=== PATIENT | female | born 1960 | race Caucasian/White ===

== ENCOUNTER 2019-05-18 08:52 | Observation (INO) | payer OTHER ==
[2019-05-18] MEDS ORDERED: ASPIRIN 81 MG PO STA (09:18)
--- NOTE | 2019-05-18 09:20 | ED ---
General Adult HPI - General Chief complaint: Chest Pain Stated complaint: Chest pain, High BP, headache Time Seen by Provider: 05/18/19 09:04 Source: patient Mode of arrival: wheelchair - History of Present Illness Initial comments: Dictation was produced using PROFIC[employer] dictation software. please excuse any grammatical, word or spelling errors. Chief Complaint: 59-year-old female with past medical history of dyslipidemia and hypertension presents with chest pain. History of Present Illness: 59-year-old female she presents today chief complaint of chest pain. Patient is not sure when exactly she had the chest pain. States that spent have been intermittently for the last several days. She states that she had pain that woke her up this morning. Patient states that the pain is sharp and located to her anterior chest. She states that there is associated diaphoresis and nausea. States that the pain does radiate to her extremity however she is not sure which arm. She has a chronic tobacco user. She denies any chest pain currently. The ROS documented in this emergency department record has been reviewed and confirmed by me. Those systems with pertinent positive or negative responses have been documented in the HPI. All other systems are other negative and/or noncontributory. PHYSICAL EXAM: General Impression: Alert and oriented x3, not in acute distress HEENT: Normocephalic atraumatic, extra-ocular movements intact, pupils equal and reactive to light bilaterally, mucous membranes moist. Cardiovascular: Heart regular rate and rhythm, S1&S2 audible, no murmurs, rubs or gallops Chest: Lungs clear to auscultation bilaterally, no rhonchi, no wheeze, no rales Abdomen: Bowel sounds present, abdomen soft, non-tender, non-distended, no o rganomegaly Musculoskeletal: Pulses present and equal in all extremities, no peripheral edema Motor: no focal deficits noted Neurological: CN II-XII grossly intact, no focal motor or sensory deficits noted Skin: Intact with no visualized rashes Psych: Normal affect and mood ED course: 59-year-old female presents with atypical chest pain with typical features. She has multiple risk factors. Signs upon arrival are within acceptable limits. EKG is benign. Laboratory evaluation obtained. CBC, coag panel, metabolic panel is unremarkable. Cardiac enzyme is negative. Chest x-ray is nonacute. Patient was reevaluated at bedside with improvement of chest pain after administration of aspirin. Given patient's clinical presentation and risk factors which should benefit from observation admission with serial troponins and cardiology consultation. Discussed patient case with Dr. Farmer who is willing to accept patients care. EKG interpretation: Ventricular rate 78, normal sinus rhythm, MI interval 132, QRS 92, QTc 433. No MI prolongation, no QTC prolongation, no ST or T-wave changes noted. Overall, this EKG is unremarkable - Related Data Home Medications Medication Instructions Recorded Confirmed Aspirin EC [Ecotrin Low Dose] 81 mg PO DAILY 05/18/19 05/18/19 Butalb/Acetaminophen/Caffeine 1 - 2 tab PO Q4H PRN 05/18/19 05/18/19 [Fioricet 50-325-40] Cyanocobalamin (Vitamin B-12) 1,000 mcg PO DAILY 05/18/19 05/18/19 [Vitamin B-12] Fluticasone Propionate [Flonase 1 spray EA NOSTRIL DAILY 05/18/19 05/18/19 Allergy Relief] Hydrocodone/Acetaminophen [[place] 1 tab PO QID PRN 05/18/19 05/18/19 10-325] Ibuprofen [Motrin] 400 - 800 mg PO Q8H PRN 05/18/19 05/18/19 Metoprolol Succinate (ER) [Toprol 25 mg PO DAILY 05/18/19 05/18/19 Xl] Vitamin B Complex 1 cap PO DAILY 05/18/19 05/18/19 Allergies Allergy/AdvReac Type Severity Reaction Status Date / Time Sulfa (Sulfonamide Allergy Rash/Hives Verified 05/18/19 10:15 Antibiotics) Review of Systems ROS Statement: Those systems with pertinent positive or pertinent negative responses have been documented in the HPI. ROS Other: All systems not noted in ROS Statement are negative. Past Medical History Past Medical History: Hyperlipidemia, Hypertension History of Any Multi-Drug Resistant Organisms: None Reported Past Surgical History: Hysterectomy, Orthopedic Surgery, Tonsillectomy Past Psychological History: No Psychological Hx Reported Smoking Status: Current some day smoker Past Alcohol Use History: None Reported Past Drug Use History: None Reported Course Vital Signs 05/18/19 05/18/19 08:52 09:29 Temperature 98.0 F 98.2 F Pulse Rate 89 77 Respiratory 18 20 Rate Blood Pressure 186/107 167/96 O2 Sat by Pulse 98 98 Oximetry Medical Decision Making - Lab Data Result diagrams: 05/18/19 09:19 05/18/19 09:19 Lab Results 05/18/19 05/18/19 05/18/19 Range/Units 09:19 09:19 09:19 WBC 5.5 (3.8-10.6) k/uL RBC 4.62 (3.80-5.40) m/uL Hgb 14.8 (11.4-16.0) gm/dL Hct 44.1 (34.0-46.0) % MCV 95.5 (80.0-100.0) fL MCH 32.0 (25.0-35.0) pg MCHC 33.5 (31.0-37.0) g/dL RDW 12.9 (11.5-15.5) % Plt Count 176 (150-450) k/uL Neutrophils % 50 % Lymphocytes % 38 % Monocytes % 4 % Eosinophils % 4 % Basophils % 1 % Neutrophils # 2.8 (1.3-7.7) k/uL Lymphocytes # 2.1 (1.0-4.8) k/uL Monocytes # 0.2 (0-1.0) k/uL Eosinophils # 0.2 (0-0.7) k/uL Basophils # 0.1 (0-0.2) k/uL PT 11.5 (9.0-12.0) sec INR 1.1 (<1.2) APTT 24.5 (22.0-30.0) sec Sodium 139 (137-145) mmol/L Potassium 4.0 (3.5-5.1) mmol/L Chloride 105 (98-107) mmol/L Carbon Dioxide 24 (22-30) mmol/L Anion Gap 10 mmol/L BUN 13 (7-17) mg/dL Creatinine 0.69 (0.52-1.04) mg/dL Est GFR (CKD-EPI)AfAm >90 (>60 ml/min/1.73 sqM) Est GFR (CKD-EPI)NonAf >90 (>60 ml/min/1.73 sqM) Glucose 158 H (74-99) mg/dL Calcium 9.9 (8.4-10.2) mg/dL Magnesium 1.6 (1.6-2.3) mg/dL Total Bilirubin 0.3 (0.2-1.3) mg/dL AST 86 H (14-36) U/L ALT 115 H (4-34) U/L Alkaline Phosphatase 114 (38-126) U/L Troponin I (0.000-0.034) ng/mL Total Protein 8.5 H (6.3-8.2) g/dL Albumin 4.6 (3.5-5.0) g/dL 05/18/19 Range/Units 09:19 WBC (3.8-10.6) k/uL RBC (3.80-5.40) m/uL Hgb (11.4-16.0) gm/dL Hct (34.0-46.0) % MCV (80.0-100.0) fL MCH (25.0-35.0) pg MCHC (31.0-37.0) g/dL RDW (11.5-15.5) % Plt Count (150-450) k/uL Neutrophils % % Lymphocytes % % Monocytes % % Eosinophils % % Basophils % % Neutrophils # (1.3-7.7) k/uL Lymphocytes # (1.0-4.8) k/uL Monocytes # (0-1.0) k/uL Eosinophils # (0-0.7) k/uL Basophils # (0-0.2) k/uL PT (9.0-12.0) sec INR (<1.2) APTT (22.0-30.0) sec Sodium (137-145) mmol/L Potassium (3.5-5.1) mmol/L Chloride (98-107) mmol/L Carbon Dioxide (22-30) mmol/L Anion Gap mmol/L BUN (7-17) mg/dL Creatinine (0.52-1.04) mg/dL Est GFR (CKD-EPI)AfAm (>60 ml/min/1.73 sqM) Est GFR (CKD-EPI)NonAf (>60 ml/min/1.73 sqM) Glucose (74-99) mg/dL Calcium (8.4-10.2) mg/dL Magnesium (1.6-2.3) mg/dL Total Bilirubin (0.2-1.3) mg/dL AST (14-36) U/L ALT (4-34) U/L Alkaline Phosphatase (38-126) U/L Troponin I <0.012 (0.000-0.034) ng/mL Total Protein (6.3-8.2) g/dL Albumin (3.5-5.0) g/dL Disposition Clinical Impression: Chest pain Disposition: ADMITTED IP TO THIS HOSP Condition: Fair Referrals: Anatoliy Avilez MD [Primary Care Provider] - 1-2 days Decision Time: 10:29
[2019-05-18 09:39] LABS: Basophils # (A) 0.1 k/uL (0-0.2); Basophils % (A) 1 %; Eosinophils # (A) 0.2 k/uL (0-0.7); Eosinophils % (A) 4 %; HCT 44.1 % (34.0-46.0); HGB 14.8 gm/dL (11.4-16.0); Lymphocytes # (A) 2.1 k/uL (1.0-4.8); Lymphocytes % (A) 38 %; MCHC 33.5 g/dL (31.0-37.0); MCV 95.5 fL (80.0-100.0); Monocytes # (A) 0.2 k/uL (0-1.0); Monocytes % (A) 4 %; Neutrophils # (A) 2.8 k/uL (1.3-7.7); Neutrophils % (A) 50 %; Platelet Count 176 k/uL (150-450); RBC 4.62 m/uL (3.80-5.40); RDW 12.9 % (11.5-15.5); WBC 5.5 k/uL (3.8-10.6)
--- NOTE | 2019-05-18 09:44 | XR ---
EXAMINATION TYPE: XR chest 2V DATE OF EXAM: 05/18/2019 COMPARISON: NONE HISTORY: Shortness of breath TECHNIQUE: Frontal and lateral views of the chest are obtained. FINDINGS: Scattered senescent parenchymal changes noted. Hyperinflation compatible with COPD. No evidence for infiltrate. No evidence for atelectasis. Heart size is stable. Mediastinal structures are stable and grossly unremarkable. No evidence for hilar prominence. Degenerative changes dorsal spine. IMPRESSION: 1. No evidence for acute pulmonary disease.
[2019-05-18 09:47] LABS: INR 1.1 (<1.2); Partial Thromboplastin Time 24.5 sec (22.0-30.0); Prothrombin Time 11.5 sec (9.0-12.0)
[2019-05-18 09:51] LABS: ALT 115 U/L (4-34); AST 86 U/L (14-36); African American GFR (CKD) >90 (>60 ml/min/1.73 sqM); Albumin 4.6 g/dL (3.5-5.0); Alkaline Phosphatase 114 U/L (38-126); Anion Gap 10 mmol/L; Blood Urea Nitrogen 13 mg/dL (7-17); Calcium 9.9 mg/dL (8.4-10.2); Carbon Dioxide 24 mmol/L (22-30); Chloride 105 mmol/L (98-107); Glucose 158 mg/dL (74-99); Magnesium 1.6 mg/dL (1.6-2.3); Non-African American GFR(CKD) >90 (>60 ml/min/1.73 sqM); Sodium 139 mmol/L (137-145); Total Bilirubin 0.3 mg/dL (0.2-1.3); Total Protein 8.5 g/dL (6.3-8.2)
[2019-05-18] MEDS ORDERED: NITROGLYCERIN SL TABS 0.4 MG TAB SUBLINGUAL PRN (10:25)
[2019-05-18] MEDS ORDERED: amLODIPine 10 MG TAB PO SCH (11:30)
[2019-05-18] MEDS ORDERED: INFLUENZA VACCINE (6 MOS+) 60 MCG/0.5 ML SYRINGE IM ONE (11:35)
[2019-05-18] MEDS ORDERED: PNEUMOCOCCAL VACC-PNEUMOVAX 23 25 MCG/0.5 ML VIAL IM ONE (11:35)
[2019-05-18] MEDS: HYDROCHLOROTHIAZIDE 25 MG TAB PO SCH (11:46)
--- NOTE | 2019-05-18 11:49 | P.CRDCN ---
History of Present Illness History of present illness: HISTORY OF PRESENTING ILLNESS This is a pleasant 59-year-old female past medical history significant for newly diagnosed hypertension, chronic back pain and chronic nicotine depend ence. 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 We have been asked to see in consultation for chest pain. States she was diagnosed with hypertension yesterday by her primary care physician. Her initial reason for evaluation was secondary to headache. She was started on Toprol 25 mg daily. She took one dose yesterday and another dose this morning. After waking up she felt a numb tingling sensation in the left arm associated with a sharp discomfort in the chest. This episode was very brief and subsided on its own after a few seconds. She denies associated shortness of breath, dizziness or palpitations. She does state in the past she has felt lightheaded associated with her headaches. Blood pressure on arrival was 186/107. DIAGNOSTICS EKG reveals sinus mechanism with no acute ST or T wave abnormalities noted. Chest xray negative for an acute cardiopulmonary process. Laboratory reviewed, CBC unremarkable, sodium 139, potassium 4.0, creatinine 0.69, AST 86, ALT 115 and cardiac enzymes negative 1. Current cardiac medications include Toprol 25 mg daily. REVIEW OF SYSTEMS At the time of my exam: CONSTITUTIONAL: Denies fever or chills. CARDIOVASCULAR: Denies chest pain, shortness of breath, orthopnea, PND or palpitations. RESPIRATORY: Denies cough. GASTROINTESTINAL: Denies abdominal pain, diarrhea, constipation, nausea or vomiting. MUSCULOSKELETAL: Denies myalgias. NEUROLOGIC: Complains of headache. Denies numbness, tingling or weakness. ENDOCRINE: Denies fatigue, weight change, polydipsia or polyurina. GENITOURINARY: Denies burning, hematuria or urgency with micturation. HEMATOLOGIC: Denies history of anemia or bleeding. PHYSICAL EXAMINATION Blood pressure 172/77 heart rate 61 afebrile and maintaining oxygen saturation on room air. CONSTITUTIONAL: No apparent distress. HEENT: Head is normocephalic. Pupils are equal, round. Sclerae anicteric. Mucous membranes of the mouth are moist. No JVD. No carotid bruit. CHEST EXAMINATION: Lungs are clear to auscultation. No chest wall tenderness is noted on palpation or with deep breathing. HEART EXAMINATION: Regular rate and rhythm. S1, S2 heard. No murmurs, gallops or rub. ABDOMEN: Soft, nontender. Positive bowel sounds. EXTREMITIES: 2+ peripheral pulses, no lower extremity edema and no calf tenderness. NEUROLOGIC EXAMINATION: Patient is awake, alert and oriented x3. ASSESSMENT Chest pain, atypical. Likely related to uncontrolled hypertension. Hypertension, uncontrolled Elevated liver enzymes, most likely secondary to excessive acetaminophen intake. Headache patient takes 2 Fioricet per day Chronic back pain, she states she takes for more close per day PLAN Discontinue toprol as this is not a first line choice for hypertension therapy. Initiate amlodipine 10 mg daily and hydrochlorothiazide 25 mg daily, first dose now. Decrease aspirin to 81 mg daily. Obtain 2D echocardiogram and doppler study to assess cardiac structure and function. Check lipid profile and hgb A1C. No stress testing at this time given her blood pressures. If her pressure is better by morning on current regimen then likely discharge. Outpatient stress testing in the office in 2-3 weeks. Smoking cessation recommended. Advised cessation of acetaminophen and follow up with liver enzymes thereafter, management per PCP. Thank you kindly for this consultation. Nurse Practitioner note has been reviewed, I agree with a documented findings and plan of care. Patient was seen and examined. Past Medical History Past Medical History: Hearing Disorder / Deafness, Hypertension, Osteoarthritis (OA) Additional Past Medical History / Comment(s): Migraines, cervical and back pain, occasional bilateral tinnitis, [place] bilaterally-L ear worse, generalized arthritis, sinus allergies, colitis many years ago. History of Any Multi-Drug Resistant Organisms: None Reported Past Surgical History: Hysterectomy, Orthopedic Surgery, Tonsillectomy Additional Past Surgical History / Comment(s): R ACL repair, bilateral rotator cuff repairs, bilateral knee meniscus repairs, colonoscopy, cervical and lower back pain clinic procedures. Past Anesthesia/Blood Transfusion Reactions: No Reported Reaction Past Psychological History: Depression Additional Psychological History / Comment(s): Pt resides alone. She is independent. Pt states she had issues with depression in the past, was placed on wellbutrin to assist in stopping smoking but also noticed it had helped her depression. Pt states she has no suicidal thoughts or wishes she were . Smoking Status: Light tobacco smoker Past Alcohol Use History: Rare Additional Past Alcohol Use History / Comment(s): PT started smoking in 1972 and states a pack lasts between 2-4 days. Past Drug Use History: Marijuana Additional Drug Use History / Comment(s): Pt states she last used marijuana a month ago. - Past Family History Father History Unknown: Yes Additional Family Medical History / Comment(s): Father when pt was in 5th or 6th grade. Sister(s) Family Medical History: Cancer, Diabetes Mellitus Additional Family Medical History / Comment(s): Sister from lymphoma. Mother Family Medical History: Hyperlipidemia, Hypertension Medications and Allergies Home Medications Medication Instructions Recorded Confirmed Type Aspirin EC [Ecotrin Low Dose] 81 mg PO DAILY 05/18/19 05/18/19 History Butalb/Acetaminophen/Caffeine 1 - 2 tab PO Q4H PRN 05/18/19 05/18/19 History [Fioricet 50-325-40] Cyanocobalamin (Vitamin B-12) 1,000 mcg PO DAILY 05/18/19 05/18/19 History [Vitamin B-12] Fluticasone Propionate [Flonase 1 spray EA NOSTRIL DAILY 05/18/19 05/18/19 History Allergy Relief] Hydrocodone/Acetaminophen [[place] 1 tab PO QID PRN 05/18/19 05/18/19 History 10-325] Ibuprofen [Motrin] 400 - 800 mg PO Q8H PRN 05/18/19 05/18/19 History Metoprolol Succinate (ER) [Toprol 25 mg PO DAILY 05/18/19 05/18/19 History Xl] Vitamin B Complex 1 cap PO DAILY 05/18/19 05/18/19 History Allergies Allergy/AdvReac Type Severity Reaction Status Date / Time Sulfa (Sulfonamide Allergy Rash/Hives Verified 05/18/19 10:15 Antibiotics) Physical Exam Vitals: Vital Signs Temp Pulse Pulse Resp BP BP Pulse Ox 05/18/19 10:57 98.2 F 61 16 172/77 97 05/18/19 09:29 98.2 F 77 20 167/96 98 05/18/19 08:52 98.0 F 89 18 186/107 98 Intake and Output 05/17/19 05/18/19 05/18/19 22:59 06:59 14:59 Other: Weight 60.4 kg Results 05/18/19 09:19 05/18/19 09:19 Cardiac Enzymes 05/18/19 05/18/19 Range/Units 09:19 09:19 AST 86 H (14-36) U/L Troponin I <0.012 (0.000-0.034) ng/mL Coagulation 05/18/19 Range/Units 09:19 PT 11.5 (9.0-12.0) sec APTT 24.5 (22.0-30.0) sec CBC 05/18/19 Range/Units 09:19 WBC 5.5 (3.8-10.6) k/uL RBC 4.62 (3.80-5.40) m/uL Hgb 14.8 (11.4-16.0) gm/dL Hct 44.1 (34.0-46.0) % Plt Count 176 (150-450) k/uL Comprehensive Metabolic Panel 05/18/19 Range/Units 09:19 Sodium 139 (137-145) mmol/L Potassium 4.0 (3.5-5.1) mmol/L Chloride 105 (98-107) mmol/L Carbon Dioxide 24 (22-30) mmol/L BUN 13 (7-17) mg/dL Creatinine 0.69 (0.52-1.04) mg/dL Glucose 158 H (74-99) mg/dL Calcium 9.9 (8.4-10.2) mg/dL AST 86 H (14-36) U/L ALT 115 H (4-34) U/L Alkaline Phosphatase 114 (38-126) U/L Total Protein 8.5 H (6.3-8.2) g/dL Albumin 4.6 (3.5-5.0) g/dL Current Medications Generic Name Dose Route Start Last Admin Trade Name Freq PRN Reason Stop Dose Admin Amlodipine Besylate 10 mg 05/18/19 11:30 Norvasc PO DAILY [facility] [place] Aspirin 81 mg 05/19/19 09:00 Aspirin PO DAILY [facility] [place] Hydrochlorothiazide 25 mg 05/18/19 11:30 Hydrodiuril PO DAILY [facility] [place] Nitroglycerin 0.4 mg 05/18/19 10:25 Nitrostat SUBLINGUAL Q5M PRN Chest Pain Intake and Output 05/17/19 05/18/19 05/18/19 22:59 06:59 14:59 Other: Weight 60.4 kg Patient Weight 05/19/19 06:59 Weight 60.4 kg 05/18/19 09:19 05/18/19 09:19
[2019-05-18] MEDS ORDERED: FAMOTIDINE 20 MG TAB PO SCH (12:45)
--- NOTE | 2019-05-18 13:37 | P.HPIM ---
History of Present Illness Patient is a pleasant 59-year-old the female came in with complaints of the in the left thumb patient was started on beta blockers today for hypertension. And the pain is sharp with some tingling and numbness in the left arm denied any significant chest pain lasted only for a few minutes moderate amount of chest pain subsided on its own nonexertional not associated with food nonpleuritic now no associated dizziness palpitations like she did have some lightheadedness. This lightheadedness is probably because of the beta dexter. She is complaining of migraine headaches. Blood pressure was high. Patient was started on couple antihypertensive medications. Patient did take a beta dexter today morning. Patient blood pressure has been high for long period of time because of which we need to slowly decrease her blood pressure although she needs couple of and if his medications on only start her on 100 and it was medication will be discussed uterine patient already took her beta dexter today part of the blood pressure elevation is secondary to headache. Patient does have history of migraine. Review of Systems REVIEW OF SYSTEMS: CONSTITUTIONAL: No fever, no malaise, no fatigue. HEENT: No recent visual problems or hearing problems. Denied any sore throat. CARDIOVASCULAR: No orthopnea, PND, no palpitations, no syncope. PULMONARY: No shortness of breath, no cough, no hemoptysis. GASTROINTESTINAL: No diarrhea, no nausea, no vomiting, no abdominal pain. NEUROLOGICAL: No headaches, no weakness, no numbness. HEMATOLOGICAL: Denies any bleeding or petechiae. GENITOURINARY: Denies any burning micturition, frequency, or urgency. MUSCULOSKELETAL/RHEUMATOLOGICAL: Denies any joint pain, swelling, or any muscle pain. ENDOCRINE: Denies any polyuria or polydipsia. The rest of the 14-point review of systems is negative. Past Medical History Past Medical History: Hearing Disorder / Deafness, Hypertension, Osteoarthritis (OA) Additional Past Medical History / Comment(s): Migraines, cervical and back pain, occasional bilateral tinnitis, [place] bilaterally-L ear worse, generalized arthritis, sinus allergies, colitis many years ago. History of Any Multi-Drug Resistant Organisms: None Reported Past Surgical History: Hysterectomy, Orthopedic Surgery, Tonsillectomy Additional Past Surgical History / Comment(s): R ACL repair, bilateral rotator cuff repairs, bilateral knee meniscus repairs, colonoscopy, cervical and lower back pain clinic procedures. Past Anesthesia/Blood Transfusion Reactions: No Reported Reaction Past Psychological History: Depression Additional Psychological History / Comment(s): Pt resides alone. She is independent. Pt states she had issues with depression in the past, was placed on wellbutrin to assist in stopping smoking but also noticed it had helped her depression. Pt states she has no suicidal thoughts or wishes she were . Smoking Status: Light tobacco smoker Past Alcohol Use History: Rare Additional Past Alcohol Use History / Comment(s): PT started smoking in 1972 and states a pack lasts between 2-4 days. Past Drug Use History: Marijuana Additional Drug Use History / Comment(s): Pt states she last used marijuana a month ago. - Past Family History Father History Unknown: Yes Additional Family Medical History / Comment(s): Father when pt was in 5th or 6th grade. Sister(s) Family Medical History: Cancer, Diabetes Mellitus Additional Family Medical History / Comment(s): Sister from lymphoma. Mother Family Medical History: Hyperlipidemia, Hypertension Medications and Allergies Home Medications Medication Instructions Recorded Confirmed Type Aspirin EC [Ecotrin Low Dose] 81 mg PO DAILY 05/18/19 05/18/19 History Butalb/Acetaminophen/Caffeine 1 - 2 tab PO Q4H PRN 05/18/19 05/18/19 History [Fioricet 50-325-40] Cyanocobalamin (Vitamin B-12) 1,000 mcg PO DAILY 05/18/19 05/18/19 History [Vitamin B-12] Fluticasone Propionate [Flonase 1 spray EA NOSTRIL DAILY 05/18/19 05/18/19 History Allergy Relief] Hydrocodone/Acetaminophen [[place] 1 tab PO QID PRN 05/18/19 05/18/19 History 10-325] Ibuprofen [Motrin] 400 - 800 mg PO Q8H PRN 05/18/19 05/18/19 History Metoprolol Succinate (ER) [Toprol 25 mg PO DAILY 05/18/19 05/18/19 History Xl] Vitamin B Complex 1 cap PO DAILY 05/18/19 05/18/19 History Allergies Allergy/AdvReac Type Severity Reaction Status Date / Time Sulfa (Sulfonamide Allergy Rash/Hives Verified 05/18/19 10:15 Antibiotics) Physical Exam Vitals: Vital Signs Temp Pulse Pulse Resp BP BP Pulse Ox 05/18/19 10:57 98.2 F 61 16 172/77 97 05/18/19 09:29 98.2 F 77 20 167/96 98 05/18/19 08:52 98.0 F 89 18 186/107 98 Intake and Output 05/17/19 05/18/19 05/18/19 22:59 06:59 14:59 Other: Voiding Method Toilet Weight 60.4 kg PHYSICAL EXAMINATION: GENERAL: The patient is alert and oriented x3, not in any acute distress. Well developed, well nourished. HEENT: Pupils are round and equally reacting to light. EOMI. No scleral icterus. No conjunctival pallor. Normocephalic, atraumatic. No pharyngeal erythema. No thyromegaly. CARDIOVASCULAR: S1 and S2 present. No murmurs, rubs, or gallops. PULMONARY: Chest is clear to auscultation, no wheezing or crackles. ABDOMEN: Soft, nontender, nondistended, normoactive bowel sounds. No palpable organomegaly. MUSCULOSKELETAL: No joint swelling or deformity. EXTREMITIES: No cyanosis, clubbing, or pedal edema. NEUROLOGICAL: Gross neurological examination did not reveal any focal deficits. SKIN: No rashes. Results CBC & Chem 7: 05/18/19 09:19 05/18/19 09:19 Labs: Abnormal Lab Results - Last 24 Hours (Table) 05/18/19 Range/Units 09:19 Glucose 158 H (74-99) mg/dL AST 86 H (14-36) U/L ALT 115 H (4-34) U/L Total Protein 8.5 H (6.3-8.2) g/dL Thrombosis Risk Factor Assmnt - Choose All That Apply Any of the Below Risk Factors Present?: Yes Other Risk Factors: Yes Each Risk Factor Represents 2 Points: Age 61-74 years Other congenital or acquired thrombophilia - If yes, enter type in comment: No Thrombosis Risk Factor Assessment Total Risk Factor Score: 2 Thrombosis Risk Factor Assessment Level: Low Risk Assessment and Plan Plan: -Chest pain we will rule out a concurrent syndromesand ST-T wave changes patient appears to have noncardiac chest pain cardiology evaluated the patient -essential hypertension elevated blood pressures patient will be continued on hydrochlorothiazide may require second and it was medication which we will add s lowly beta dexter will be discontinued, probably reason why she was started on beta blockers because of her headaches. Part of the blood pressure elevation is secondary to migraine -Migraine headache: Patient was started on Reglan, Toradol with the GI prophylaxis with do not have Compazine IV here because of which we're using Reglan -Nicotine abuse: Counseling was provided -Chronic low back pain
[2019-05-18] MEDS: NICOTINE 14MG/24HR PATCH TRANSDERM SCH (14:01)
[2019-05-18] MEDS: KETOROLAC 30 MG/ML 1 ML VIAL IVP PRN ×2 (14:19→20:20)
--- NOTE | 2019-05-18 14:31 | US ---
EXAMINATION TYPE: US liver DATE OF EXAM: 05/18/2019 COMPARISON: NONE CLINICAL HISTORY: elevated enzymes. Elevated LFT's EXAM MEASUREMENTS: Liver Length: 17.9 cm Gallbladder Wall: 0.2 cm CBD: 0.5 cm Right Kidney: 10.1 x 3.6 x 4.7 cm Pancreas: 2mm duct, otherwise appeared wnl Liver: Upper limits of normal for size Gallbladder: wnl Evidence for sonographic Anthony's sign: No CBD: wnl Right Kidney: wnl IMPRESSION: No distinct abnormality appreciated.
[2019-05-18] MEDS: METOCLOPRAMIDE 5 MG/ML 2 ML VIAL IVP SCH ×2 (16:33→23:27)
[2019-05-18 18:19] LABS: Hemoglobin A1C 5.2 % (4.0-6.0)
[2019-05-19] MEDS ORDERED: CALCIUM CARBONATE 500 MG CHEWABLE PO PRN (01:39)
[2019-05-19] MEDS: KETOROLAC 30 MG/ML 1 ML VIAL IVP PRN ×2 (01:48→10:05)
[2019-05-19] MEDS: METOCLOPRAMIDE 5 MG/ML 2 ML VIAL IVP SCH (06:11)
[2019-05-19 07:28] VITALS: BP 148/91; PULSE 86; RESP 18; TEMP 98.2
[2019-05-19 07:30] LABS: African American GFR (CKD) >90 (>60 ml/min/1.73 sqM); Anion Gap 12 mmol/L; Blood Urea Nitrogen 17 mg/dL (7-17); Calcium 10.1 mg/dL (8.4-10.2); Carbon Dioxide 23 mmol/L (22-30); Chloride 102 mmol/L (98-107); Cholesterol 136 mg/dL (<200); Glucose 101 mg/dL (74-99); HDL Cholesterol 44 mg/dL (40-60); LDL Cholesterol,Calculated 70 mg/dL (0-99); Non-African American GFR(CKD) 89 (>60 ml/min/1.73 sqM); Potassium 4.4 mmol/L (3.5-5.1); Sodium 137 mmol/L (137-145); Triglycerides 109 mg/dL (<150)
[2019-05-19] MEDS: HYDROCHLOROTHIAZIDE 25 MG TAB PO SCH (08:17)
[2019-05-19] MEDS: NICOTINE 14MG/24HR PATCH TRANSDERM SCH (08:17)
[2019-05-19] MEDS ORDERED: PANTOPRAZOLE 40 MG/10 ML VIAL IVP SCH (09:00)
[2019-05-19] MEDS ORDERED: amLODIPine 10 MG TAB PO SCH (09:00)
[2019-05-19] MEDS ORDERED: ASPIRIN 81 MG PO SCH (09:00)
[2019-05-19] MEDS ORDERED: ASPIRIN 325 MG TAB PO SCH (09:00)
--- NOTE | 2019-05-19 10:00 | ECHOF ---
Referral Reason:cp, htn MEASUREMENTS -------- HEIGHT: 160.0 cm WEIGHT: 60.3 kg BP: 172/77 RVIDd: 2.7 cm (< 3.3) IVSd: 1.5 cm (0.6 - 1.1) LVIDd: 3.2 cm (3.9 - 5.3) LVPWd: 1.6 cm (0.6 - 1.1) IVSs: 2.1 cm LVIDs: 2.0 cm LVPWs: 1.9 cm LAESV Index (A-L): 29.20 ml/m Ao Diam: 3.1 cm (2.0 - 3.7) AV Cusp: 2.1 cm (1.5 - 2.6) MV EXCURSION: 17.874 mm (> 18.000) MV EF SLOPE: 84 mm/s (70 - 150) EPSS: 0.3 cm MV E Bola: 0.84 m/s MV DecT: 211 ms MV A Bola: 0.78 m/s MV E/A Ratio: 1.08 RAP: 5.00 mmHg RVSP: 27.51 mmHg FINDINGS -------- Sinus rhythm. This was a technically good study. The left ventricular size is normal. There is moderate concentric left ventricular hypertrophy. T here is normal global left ventricular contractility. Overall left ventricular systolic function is normal with, an EF between 60 - 65 %. The diastolic filling pattern is normal for the age of the p atient 11.68. The right ventricle is normal in size. LA is midly dilated 29-33ml/m2. The right atrial size is normal. Interatrial and interventricular septum intact. The aortic valve is trileaflet and appears structurally normal. There is mild to moderate aortic va lve sclerosis. There is no evidence of aortic regurgitation. There is no evidence of aortic steno sis. No mitral regurgitation. Mild tricuspid regurgitation present. There is no evidence of pulmonary hypertension. The right v entricular systolic pressure, as measured by Doppler, is 27.51mmHg. Trace/mild (physiologic) pulmonic regurgitation. The aortic root size is normal. Normal inferior vena cava with normal inspiratory collapse consistent with estimated right atrial pre ssure of 5 mmHg. There is no pericardial effusion. CONCLUSIONS -------- 1. Sinus rhythm. 2. This was a technically good study. 3. The left ventricular size is normal. 4. There is moderate concentric left ventricular hypertrophy. 5. There is normal global left ventricular contractility. 6. Overall left ventricular systolic function is normal with, an EF between 60 - 65 %. 7. The diastolic filling pattern is normal for the age of the patient 11.68 8. The right ventricle is normal in size. 9. LA is midly dilated 29-33ml/m2. 10. The right atrial size is normal. 11. Interatrial and interventricular septum intact. 12. The aortic valve is trileaflet and appears structurally normal. 13. There is mild to moderate aortic valve sclerosis. 14. There is no evidence of aortic regurgitation. 15. There is no evidence of aortic stenosis. 16. No mitral regurgitation. 17. Mild tricuspid regurgitation present. 18. There is no evidence of pulmonary hypertension. 19. The right ventricular systolic pressure, as measured by Doppler, is 27.51mmHg. 20. Trace/mild (physiologic) pulmonic regurgitation. 21. The aortic root size is normal. 22. Normal inferior vena cava with normal inspiratory collapse consistent with estimated right atrial pressure of 5 mmHg. 23. There is no pericardial effusion. POULTRY PROCESSOR: Anabel Mckeon RDCS
[2019-05-19 10:01] LABS: ALT 135 U/L (4-34); AST 94 U/L (14-36); Albumin 4.6 g/dL (3.5-5.0); Alkaline Phosphatase 118 U/L (38-126); Total Bilirubin 0.6 mg/dL (0.2-1.3); Total Protein 8.8 g/dL (6.3-8.2)
--- NOTE | 2019-05-19 10:19 | P.PN ---
Subjective HISTORY OF PRESENTING ILLNESS This is a pleasant 59-year-old female past medical history significant for newly diagnosed hypertension, chronic back pain and chronic nicotine dependence. 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 She is seen and examined sitting up in a chair in no acute distress. She states that her headache has resolved as her blood pressure has come down. She denies any further symptoms of chest discomfort. His breathing has been stable. She has been up and ambulating without difficulty. Blood pressure 148/91 heart rate 86 afebrile maintaining oxygen saturation on room air. Laboratory data reviewed, sodium 137, potassium 4.4, creatinine 0.73, AST 94, ALT 135, LDL 70. Echocardiogram obtained reveals preserved LV systolic function with normal ejection fraction and no evidence of wall motion abnormality. Currently maintained on aspirin 81 mg daily, amlodipine 10 mg daily and hydrochlorothiazide 25 mg daily. CONSTITUTIONAL: No apparent distress. HEENT: Head is normocephalic. Pupils are equal, round. Sclerae anicteric. Mucous membranes of the mouth are moist. No JVD. No carotid bruit. CHEST EXAMINATION: Lungs are clear to auscultation. No chest wall tenderness is noted on palpation or with deep breathing. HEART EXAMINATION: Regular rate and rhythm. S1, S2 heard. No murmurs, gallops or rub. EXTREMITIES: 2+ peripheral pulses, no lower extremity edema and no calf tenderness. ASSESSMENT Chest pain, atypical. Likely related to uncontrolled hypertension. Hypertension, uncontrolled Elevated liver enzymes, most likely secondary to excessive acetaminophen intake. Headache patient takes 2 Fioricet per day Chronic back pain, she states she takes for more close per day PLAN Stable from a cardiac perspective on current medication regimen. Advised the patient to use her home blood pressure monitoring system and keep a record of her blood pressure Gen. to bring to her follow-up appointment with Dr. Biswas in the office in 2 weeks. Further adjustments to her medications can be made at that time. Outpatient stress testing once her blood pressure is completely controlled. Nurse Practitioner note has been reviewed, I agree with a documented findings and plan of care. Patient was seen and examined. Objective - Vital Signs Vital signs: Vital Signs Temp 98.2 F 05/19/19 07:27 Pulse 86 05/19/19 07:27 Resp 18 05/19/19 07:27 BP 148/91 05/19/19 07:27 Pulse Ox 96 05/19/19 07:27 Intake & Output 05/18/19 05/19/19 05/19/19 18:59 06:59 18:59 Weight 60.4 kg 60 kg Other: Voiding Method Toilet Toilet Toilet # Voids 2 - Labs CBC & Chem 7: 05/18/19 09:19 05/19/19 06:38 Labs: Abnormal Lab Results - Last 24 Hours (Table) 05/19/19 Range/Units 06:38 Glucose 101 H (74-99) mg/dL AST 94 H (14-36) U/L ALT 135 H (4-34) U/L Total Protein 8.8 H (6.3-8.2) g/dL
--- NOTE | 2019-05-19 13:26 | P.DS ---
Providers Date of admission: 05/18/19 10:25 Attending physician: Negin Dalton Consults: 05/18/19 10:25 Consult Physician Urgent Consulting Provider: Karon Villarreal Consult Reason/Comments: chest pain Do you want consulting provider notified?: Yes Primary care physician: Raghav Wagner [facility] Course: 59-year-old the female came in with complaints of the in the left thumb patient was started on beta blockers today for hypertension. And the pain is sharp with some tingling and numbness in the left arm denied any significant chest pain lasted only for a few minutes moderate amount of chest pain subsided on its own nonexertional not associated with food nonpleuritic now no associated dizziness palpitations like she did have some lightheadedness. This lightheadedness is probably because of the beta dexter. She is complaining of migraine headaches. Blood pressure was high. Patient was started on couple antihypertensive medications. Patient did take a beta dexter today morning. Patient blood pressure has been high for long period of time because of which we need to slowly decrease her blood pressure although she needs couple of and if his medications on only start her on 100 and it was medication will be discussed uterine patient already took her beta dexter today part of the blood pressure elevation is secondary to headache. Patient does have history of migraine. 05/19/2019 Patient's headache resolved blood pressure is bit better controlled patient will be discharged on hydrocodone thiazide and a low-dose of amlodipine patient will follow with cardiology and PCP as outpatient. Regarding her headache patient does have migraine with aura patient will be given Compazine was instructed to take Compazine the moment she has been patient can continue her Motrin because of elevated liver enzymes and this can urine the note: Fioricet I believe patient has acetaminophen and use her elevated liver enzymes ultrasound of the liver is within normal limits repeat compensative metabolic profile will be obtained as an outpatient. Patient liver enzymes are still bit elevated but stable at this level. She and may need acute hepatitis panel as an outpatient patient doesn't have any symptoms of acute hepatitis C. PHYSICAL EXAMINATION: GENERAL: The patient is alert and oriented x3, not in any acute distress. Well developed, well nourished. HEENT: Pupils are round and equally reacting to light. EOMI. No scleral icterus. No conjunctival pallor. Normocephalic, atraumatic. No pharyngeal erythema. No thyromegaly. CARDIOVASCULAR: S1 and S2 present. No murmurs, rubs, or gallops. PULMONARY: Chest is clear to auscultation, no wheezing or crackles. ABDOMEN: Soft, nontender, nondistended, normoactive bowel sounds. No palpable organomegaly. MUSCULOSKELETAL: No joint swelling or deformity. EXTREMITIES: No cyanosis, clubbing, or pedal edema. NEUROLOGICAL: Gross neurological examination did not reveal any focal deficits. SKIN: No rashes. -Chest pain resolved Have an essential hypertension -Migraine -Nicotine abuse -Chronic low back Patient Condition at Discharge: Fair Plan - Discharge Summary Discharge Rx Participant: No New Discharge Prescriptions: New Hydrochlorothiazide [Hydrodiuril] 25 mg PO DAILY #90 tab amLODIPine [Norvasc] 5 mg PO DAILY tab Prochlorperazine [Compazine] 10 mg PO Q6H PRN #30 tab PRN Reason: Headache Nicotine 14Mg/24Hr Patch [Habitrol] 1 patch TRANSDERM DAILY #14 patch Continue Cyanocobalamin (Vitamin B-12) [Vitamin B-12] 1,000 mcg PO DAILY Fluticasone Propionate [Flonase Allergy Relief] 1 spray EA NOSTRIL DAILY Aspirin EC [Ecotrin Low Dose] 81 mg PO DAILY Ibuprofen [Motrin] 400 - 800 mg PO Q8H PRN PRN Reason: Pain Vitamin B Complex 1 cap PO DAILY Discontinued Metoprolol Succinate (ER) [Toprol Xl] 25 mg PO DAILY Hydrocodone/Acetaminophen [[place] 10-325] 1 tab PO QID PRN PRN Reason: Pain Butalb/Acetaminophen/Caffeine [Fioricet 50-325-40] 1 - 2 tab PO Q4H PRN PRN Reason: Headache Discharge Medication List Aspirin EC [Ecotrin Low Dose] 81 mg PO DAILY 05/18/19 [History] Cyanocobalamin (Vitamin B-12) [Vitamin B-12] 1,000 mcg PO DAILY 05/18/19 [History] Fluticasone Propionate [Flonase Allergy Relief] 1 spray EA NOSTRIL DAILY 05/18/19 [History] Ibuprofen [Motrin] 400 - 800 mg PO Q8H PRN 05/18/19 [History] Vitamin B Complex 1 cap PO DAILY 05/18/19 [History] Hydrochlorothiazide [Hydrodiuril] 25 mg PO DAILY #90 tab 05/19/19 [Rx] Nicotine 14Mg/24Hr Patch [Habitrol] 1 patch TRANSDERM DAILY #14 patch 05/19/19 [Rx] Prochlorperazine [Compazine] 10 mg PO Q6H PRN #30 tab 05/19/19 [Rx] amLODIPine [Norvasc] 5 mg PO DAILY tab 05/19/19 [Rx] Follow up Appointment(s)/Referral(s): Jay Adams MD [STAFF PHYSICIAN] - 06/07/19 8:30 am (follow up with Kristel Wagner NP) Anatoliy Avilez MD [Primary Care Provider] - 1-2 days Ambulatory/Diagnostic Orders: Comprehensive Metabolic Panel [LAB.AMB] Time Frame: 3 Days, Location: None Selected Patient Instructions/Handouts: Chest Pain (DC), Hypertension (DC) Discharge Disposition: HOME SELF-CARE
== END 2019-05-19 11:09 | disposition home or self-care (01) ==
LOC: EC 08:52 → 1SOBS 10:25
PROVIDERS: ADMIT Hospitalist; ATTEND Hospitalist
DX: R07.9 Chest pain, unspecified (principal); I10 Essential (primary) hypertension; E78.5 Hyperlipidemia, unspecified; F17.210 Nicotine dependence, cigarettes, uncomplicated; G89.29 Other chronic pain; M54.5 Low back pain; M54.2 Cervicalgia; G43.909 Migraine, unspecified, not intractable, without status migrainosus; H91.90 Unspecified hearing loss, unspecified ear; M19.90 Unspecified osteoarthritis, unspecified site; H93.13 Tinnitus, bilateral; I35.8 Other nonrheumatic aortic valve disorders; Z79.82 Long term (current) use of aspirin; Z79.891 Long term (current) use of opiate analgesic; Z79.1 Long term (current) use of non-steroidal anti-inflammatories (NSAID); Z79.899 Other long term (current) drug therapy; Z88.2 Allergy status to sulfonamides; Z83.3 Family history of diabetes mellitus; Z80.7 Family history of other malignant neoplasms of lymphoid, hematopoietic and related tissues; Z82.49 Family history of ischemic heart disease and other diseases of the circulatory system; Z83.438 Family history of other disorder of lipoprotein metabolism and other lipidemia; Z90.710 Acquired absence of both cervix and uterus; Z90.89 Acquired absence of other organs
CPT/HCPCS: 96374; 96375; 96376 ×2; 99285; 36415; 93005; 93306; 80061; 80053 ×2; 83735; 84484; 85025; 85610; 85730; 83036; 71046; 76705; 90732; 90686; G0378 ×2; G0008; G0009; S4990 ×2; J2765 ×2; J1885 ×2

== ENCOUNTER → 2020-08-02 | Outpatient (CLI) | payer OTHER ==
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
--- NOTE | 2020-08-03 03:44 | CT ---
EXAMINATION TYPE: CT soft tissue neck w con DATE OF EXAM: 08/02/2020 COMPARISON: None HISTORY: Lump on the right side of the neck CT DLP: mGycm Automated exposure control for dose reduction was used. CONTRAST: The IV contrast was Isovue 100 mL. Images obtained from the aortic arch to the top of the orbits with IV contrast. There is normal branching pattern of the great vessels on the aortic arch. Thyroid gland is symmetric . There is normal contrast opacification of the carotid arteries and jugular veins. The epiglottis is normal. Prevertebral soft tissues are intact. The parotid glands are symmetric. Submandibular saliva ry glands are symmetric. I see no significant cervical adenopathy. The skull base is intact. There is normal aeration of the mastoid air cells. Cervical vertebra have normal alignment. There is narrowin g of C5-6 disc space with mild spurring. The tonsils and adenoids are within normal limits. There is no evidence of a pharyngeal mass. The tongue is intact. I see no pathologic enhancement. Specifically there is no evidence of a mass on the right side of the neck. The globes are symmetric. There is no evidence of orbital mass. There is fairly normal aeratio n of the visualized paranasal sinuses. Trachea appears normal. IMPRESSION: Negative CT scan of the neck. No evidence of right sided neck mass.
== END | disposition home or self-care (01) ==
LOC: RADCTMAIN 16:19
PROVIDERS: ATTEND Family Medicine
DX: S09.90XA Unspecified injury of head, initial encounter (principal); R41.3 Other amnesia; R22.1 Localized swelling, mass and lump, neck
CPT/HCPCS: 82565; 84520; 70491; 70450; 36415; Q9967

== ENCOUNTER → 2020-09-19 | Outpatient (CLI) | payer OTHER | END | disposition home or self-care (01) | LOC: RADMRIMAIN 11:39 | PROVIDERS: ATTEND Nurse Practitioner Family | DX: Z53.9 Procedure and treatment not carried out, unspecified reason (principal) ==

== ENCOUNTER → 2020-10-19 | Outpatient (CLI) | payer OTHER ==
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
== END | disposition home or self-care (01) ==
LOC: RADMRIMAIN 14:53
PROVIDERS: ATTEND Nurse Practitioner Family
DX: S09.90XA Unspecified injury of head, initial encounter (principal); X58.XXXA Exposure to other specified factors, initial encounter
CPT/HCPCS: 70551

== ENCOUNTER → 2021-02-28 | Outpatient (CLI) | payer OTHER ==
[2021-03-01 00:30] LABS: C Reactive Protein <0.30 mg/dL (0.00-0.80); Rheumatoid Factor, Qnt 18 IU/mL (0-15)
[2021-03-01 05:55] LABS: Anti-Smith Ab Interp NEGATIVE (NEGATIVE); DNA Double-Stranded Indetermin (NEGATIVE); JO-1 IgG Antibody <0.2 AI; Scleroderma SC-70 Ab <0.2 AI
[2021-03-01 13:14] LABS: Histone Antibody 0.9 UNITS (<1.0)
== END | disposition home or self-care (01) ==
LOC: LABWHC1 11:06
PROVIDERS: ATTEND Nurse Practitioner Family
DX: M25.50 Pain in unspecified joint (principal)
CPT/HCPCS: 36415; 83516; 86038; 86140; 86225; 86235; 86431

== ENCOUNTER → 2021-10-24 | Outpatient (CLI) | payer MEDICARE ==
[~2021-10-24] MED LIST: REGADENOSON 0.4 MG/5 ML SYRINGE IV PRN
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
--- NOTE | 2021-10-24 14:54 | CA ---
Lexiscan Nuclear Stress Test Report Name: Yesenia Lyon Exam Date: 10/24/2021 10:27 Exam Location: [place] Stress Ht (in): 63 Wt (lb): 127 BSA: 1.59 Ordering Phys: Maida Hand DO Referring Phys: YOSELYN, Technologist: Dereje Vaca Age: 61 Gender: F : 1960 Procedure CPT: Indications: I42.1 CARDIOMYOPATHY I51.7 Cardiomegaly ICD-10 Codes: Patient History: Chest Pain and shortness of breath Medications: Meds past 24 hrs: Pretest Chest Pain: STRESS TEST Lexiscan Protocol Exercise Duration (min:sec): 02:[address] Depressions (mm): Angina Score: Dillard Score: Resting HR (bpm): 57 Peak HR (bpm): 94 Resting BP (mmHg): 103 / 73 Peak BP (mmHg): 156 / 70 MPHR: 157 Target HR: 133 % MPHR: 60 METS: 1.0 Total Dose: Peak Dose: Atropine: Double Product: 73342 BP Response: Stress Termination: Infusion complete Stress Symptoms: Dyspnea Stress Summary: ECG ANALYSIS Resting ECG: Stress ECG: CONCLUSIONS Normal heart rate and blood pressure response to Lexiscan infusion No ECG evidence for ischemia Dr. Jay Adams MD (Electronically Signed) Final Date: 24 October 2021 14:53
--- NOTE | 2021-10-24 15:01 | CA ---
Transthoracic Echo Report Name: Yesenia Lyon Age: 61 Gender: F : 1960 Exam Date: 10/24/2021 09:14 Exam Location: [place] Echo Ht (in): 63 Wt (lb): 127 Ordering Physician: Maida Hand DO Attending/Referring Phys: Utilization Specialist Anabel Mckeon RDCS Procedure CPT: Indications: I42.1 cardiomyopathy Cardiac Hx: Technical Quality: Fair Contrast 1: Total Dose (mL): Contrast 2: Total Dose (mL): MEASUREMENTS (Male / Female) Normal Values 2D ECHO LV Diastolic Diameter PLAX 3.4 cm 4.2 - 5.9 / 3.9 - 5.3 cm LV Systolic Diameter PLAX 2.5 cm IVS Diastolic Thickness 1.2 cm 0.6 - 1.0 / 0.6 - 0.9 cm LVPW Diastolic Thickness 1.3 cm 0.6 - 1.0 / 0.6 - 0.9 cm LV Relative Wall Thickness 0.7 RV Internal Dim ED PLAX 3.3 cm LA Volume 24.3 cm??? 18 - 58 / 22 - 52 cm??? M-MODE Aortic Root Diameter MM 2.6 cm LA Systolic Diameter MM 4.2 cm LA Ao Ratio MM 1.6 AV Cusp Separation MM 1.8 cm DOPPLER AV Peak Velocity 167.0 cm/s AV Peak Gradient 11.2 mmHg LVOT Peak Velocity 168.7 cm/s LVOT Peak Gradient 11.4 mmHg MV Area PHT 3.7 cm??? Mitral E Point Velocity 82.0 cm/s Mitral A Point Velocity 80.4 cm/s Mitral E to A Ratio 1.0 MV Deceleration Time 206.5 ms MV E' Velocity 8.8 cm/s Mitral E to MV E' Ratio 9.3 TR Peak Velocity 167.2 cm/s TR Peak Gradient 11.2 mmHg Right Ventricular Systolic Press 16.2 mmHg FINDINGS Left Ventricle Mildly increased left ventricular wall thickness. Normal left ventricular systolic function with no obvious regional wall motion abnormalities. Left ventricular ejection fraction is estimated at 55- 60%. Normal left ventricular diastolic filling pattern. Right Ventricle Normal right ventricular size and function. Right ventricular systolic pressure within normal limits. Right Atrium Normal right atrial size. Left Atrium Normal left atrial size. No evidence for an atrial septal defect. Mitral Valve Structurally normal mitral valve. No mitral stenosis, regurgitation or prolapse. Aortic Valve Trileaflet aortic valve. Aortic valve sclerosis. No aortic stenosis. Mild aortic regurgitation. Tricuspid Valve Structurally normal tricuspid valve. Mild tricuspid regurgitation. Pulmonic Valve Structurally normal pulmonic valve. Trace pulmonic regurgitation. Pericardium No pericardial effusion. Aorta Normal size aortic root and proximal ascending aorta. CONCLUSIONS Normal LV sense Tollett function Previewed by: Dr. Jay Adams MD (Electronically Signed) Final Date: 24 October 2021 15:00
== END | disposition home or self-care (01) ==
LOC: RADNMMAIN 08:18
PROVIDERS: ATTEND Family Medicine
DX: R94.31 Abnormal electrocardiogram [ECG] [EKG] (principal)
CPT/HCPCS: 93017; 93306; 78452; A9500; J2785

== ENCOUNTER → 2023-05-29 | Outpatient (CLI) | payer MEDICARE, OTHER ==
[2023-05-29 18:21] LABS: HCT 38.5 % (37.2-46.3); MCH 31.9 pg (27.0-32.0); MCHC 33.8 g/dL (32.0-37.0); MCV 94.6 FL (80.0-97.0); Mean Platelet Volume 12.2 FL (9.5-12.2); NRBC Per 100 WBC 0 X 10*3/uL (0.00-0.01); Platelet Count 145 X 10*3/uL (140-440); RBC 4.07 X 10*6/uL (4.10-5.20); RDW 12.7 % (11.5-14.5); WBC 9.12 X 10*3/uL (4.50-10.00)
[2023-05-29 18:53] LABS: ALT 17 U/L (8-44); AST 22 U/L (13-35); Albumin 4.5 g/dL (3.8-4.9); Albumin/Globulin Ratio 1.45 Ratio (1.60-3.17); Alkaline Phosphatase 83 U/L (41-126); Blood Urea Nitrogen 9.1 mg/dL (9.0-27.0); Calcium 9.7 mg/dL (8.7-10.3); Carbon Dioxide 24.8 mmol/L (21.6-31.8); Chloride 95 mmol/L (96-109); Globulin 3.1 g/dL (1.6-3.3); Glucose 87 mg/dL (70-110); Potassium 4.4 mmol/L (3.5-5.5); Sodium 132 mmol/L (135-145); Total Bilirubin 0.2 mg/dL (0.3-1.2); Total Protein 7.6 g/dL (6.2-8.2)
[2023-05-29 21:08] LABS: NT-Pro-B-Type Natriuretic Pept 655 pg/mL (0-125)
== END | disposition home or self-care (01) ==
LOC: LABWHC1 10:04
PROVIDERS: ATTEND Student in an Organized Health Care Education/Training Program
DX: I25.10 Atherosclerotic heart disease of native coronary artery without angina pectoris (principal); R06.02 Shortness of breath; R07.9 Chest pain, unspecified
CPT/HCPCS: 36415; 80053; 83036; 83880; 84443; 85027

== ENCOUNTER 2023-06-03 15:33 | Emergency (ER) | payer MEDICARE, OTHER ==
[2023-06-03] MEDS: HYDROcodone/APAP 10-325MG 1 EACH TAB PO ONE (16:25)
[2023-06-03] MEDS: LIDOCAINE 4% PATCH TOPICAL ONE (16:25)
[2023-06-03] MEDS: DIPH,PERTUS(ACELL)TETVAC-LF 0.5 ML VIAL IM ONE (16:26)
[2023-06-03] MEDS: KETOROLAC 15 MG/ML 1 ML VIAL IM STA (16:26)
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
[2023-06-03 17:55] VITALS: RESP 18
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
[2023-06-03 18:26] VITALS: BP 137/84; PULSE 62; TEMP 97.9
== END 2023-06-03 19:19 | disposition home or self-care (01) ==
LOC: EC 15:33
DX: S39.012A Strain of muscle, fascia and tendon of lower back, initial encounter (principal); I10 Essential (primary) hypertension; Z86.59 Personal history of other mental and behavioral disorders; Z79.82 Long term (current) use of aspirin; F12.90 Cannabis use, unspecified, uncomplicated; Z23 Encounter for immunization; Z88.2 Allergy status to sulfonamides; V49.40XA Driver injured in collision with unspecified motor vehicles in traffic accident, initial encounter; Y92.410 Unspecified street and highway as the place of occurrence of the external cause
CPT/HCPCS: 72070; 72100; 72170; 71045; 90715; 99284; 96372; 90471; J1885

== ENCOUNTER 2023-12-15 11:57 | Inpatient (IN) | payer MEDICARE, MEDICAID ==
[2023-12-15 13:00] LABS: Basophils # (A) 0.1 k/uL (0-0.2); Basophils % (A) 1 %; Eosinophils # (A) 0.2 k/uL (0-0.7); Eosinophils % (A) 2 %; HCT 43.1 % (34.0-46.0); HGB 14.5 gm/dL (11.4-16.0); Lymphocytes # (A) 2.2 k/uL (1.0-4.8); Lymphocytes % (A) 19 %; MCH 32.6 pg (25.0-35.0); MCHC 33.6 g/dL (31.0-37.0); Monocytes # (A) 0.5 k/uL (0-1.0); Monocytes % (A) 4 %; Neutrophils # (A) 8.3 k/uL (1.3-7.7); Neutrophils % (A) 73 %; Platelet Count 206 k/uL (150-450); RBC 4.45 m/uL (3.80-5.40); RDW 12.6 % (11.5-15.5); WBC 11.4 k/uL (3.8-10.6)
[2023-12-15] MEDS: SODIUM CHLORIDE 0.9% 1,000 ML IV ONE (13:05)
[2023-12-15] MEDS: LORazepam 2 MG/ML INJ IV STA ×2 (13:05→16:08)
[2023-12-15] MEDS: SODIUM CHLORIDE 0.9% 500 ML 500 ML IV ONE (13:05)
--- NOTE | 2023-12-15 13:29 | ED ---
Psych HPI - General Chief Complaint: Psychiatric Symptoms Stated Complaint: EPS Time Seen by Provider: 12/15/23 12:25 Source: family, EMS, RN notes reviewed, old records reviewed Mode of arrival: EMS Limitations: no limitations, altered mental status, physical limitation - History of Present Illness Initial Comments: This is a 63-year-old female to ER for acute psychosis patient is talking in disorganized mumbled words and thoughts, patient presents with family for evaluation MD Complaint: suicidal ideation, feels depressed -: minutes(s) Associated Psychiatric Symptoms: depression, suicidal ideation, homicidal ideation, racing thoughts, auditory hallucinations, visual hallucinations, delusions Quality: constant Improves With: none, medication Context: recent alcohol abuse, recent drug abuse, not taking psychiatric medications Associated Symptoms: denies other symptoms Treatments Prior to Arrival: placed on mental health hold - Related Data Home Medications Medication Instructions Recorded Confirmed Aspirin EC [Ecotrin Low Dose] 81 mg PO DAILY 05/18/19 12/15/23 Albuterol Inhaler [Ventolin Hfa 1 - 2 puff INHALATION RT-QID PRN 12/15/23 12/15/23 Inhaler] DULoxetine HCL [Cymbalta] 60 mg PO DAILY 12/15/23 12/15/23 Isosorbide Mononitrate ER [Imdur] 30 mg PO DAILY 12/15/23 12/15/23 Meclizine [Antivert] 25 mg PO TID 12/15/23 12/15/23 Meloxicam [Mobic] 15 mg PO DAILY 12/15/23 12/15/23 Ondansetron [Zofran] 4 mg PO BID PRN 12/15/23 12/15/23 Rosuvastatin [Crestor] 10 mg PO DAILY 12/15/23 12/15/23 amLODIPine [Norvasc] 10 mg PO DAILY 12/15/23 12/15/23 carvediloL [Coreg] 12.5 mg PO BID 12/15/23 12/15/23 traZODone HCL 200 mg PO HS 12/15/23 12/15/23 traZODone HCL [Desyrel] 50 mg PO BID@0900,1400 PRN 12/15/23 12/15/23 Previous Rx's Medication Instructions Recorded hydroCHLOROthiazide [Hydrodiuril] 25 mg PO DAILY #90 tab 05/19/19 Allergies Allergy/AdvReac Type Severity Reaction Status Date / Time Sulfa (Sulfonamide Allergy Rash/Hives/ Verified 12/15/23 13:48 Antibiotics) Nausea Review of Systems ROS Statement: Those systems with pertinent positive or pertinent negative responses have been documented in the HPI. ROS Other: All systems not noted in ROS Statement are negative. Past Medical History Past Medical History: Hearing Disorder / Deafness, Hypertension, Osteoarthritis (OA) Additional Past Medical History / Comment(s): Migraines, cervical and back pain, occasional bilateral tinnitis, [place] bilaterally-L ear worse, generalized arthritis, sinus allergies, colitis many years ago. History of Any Multi-Drug Resistant Organisms: None Reported Past Surgical History: Hysterectomy, Orthopedic Surgery, Tonsillectomy Additional Past Surgical History / Comment(s): R ACL repair, bilateral rotator cuff repairs, bilateral knee meniscus repairs, colonoscopy, cervical and lower back pain clinic procedures. Past Anesthesia/Blood Transfusion Reactions: No Reported Reaction Past Psychological History: Depression Smoking Status: Current every day smoker Past Alcohol Use History: Occasional Past Drug Use History: Marijuana - Past Family History Father History Unknown: Yes Additional Family Medical History / Comment(s): Father when pt was in 5th or 6th grade. Sister(s) Family Medical History: Cancer, Diabetes Mellitus Additional Family Medical History / Comment(s): Sister from lymphoma. Mother Family Medical History: Hyperlipidemia, Hypertension General Exam General appearance: alert, in no apparent distress Head exam: Present: atraumatic, normocephalic, normal inspection Eye exam: Present: normal appearance, PERRL, EOMI. Absent: scleral icterus, conjunctival injection, periorbital swelling ENT exam: Present: normal exam, mucous membranes moist Neck exam: Present: normal inspection. Absent: tenderness, meningismus, lymphadenopathy Respiratory exam: Present: normal lung sounds bilaterally. Absent: respiratory distress, wheezes, rales, rhonchi, stridor Cardiovascular Exam: Present: regular rate, normal rhythm, normal heart sounds. Absent: systolic murmur, diastolic murmur, rubs, gallop, clicks GI/Abdominal exam: Present: soft, normal bowel sounds. Absent: distended, tenderness, guarding, rebound, rigid Extremities exam: Present: normal inspection, full ROM, normal capillary refill. Absent: tenderness, pedal edema, joint swelling, calf tenderness Back exam: Present: normal inspection Neurological exam: Present: alert, oriented X3, CN II-XII intact Psychiatric exam: Present: normal affect, normal mood Skin exam: Present: warm, dry, intact, normal color. Absent: rash Course Vital Signs 12/15/23 11:58 Temperature 98.3 F Pulse Rate 100 Respiratory 18 Rate Blood Pressure 134/80 O2 Sat by Pulse 100 Oximetry - Reevaluation(s) Reevaluation #1: 12/15/23 14:38 Medical record is reviewed Reevaluation #2: 12/15/23 14:38 Medically cleared for psychiatric evaluation and Reevaluation #3: Differential Mental Health Depression, anxiety, bipolar, psychosis, schizophrenia, borderline personality, situational depression, adjustment disorder, behavioral disorder, brain tumor, malingering, substance abuse, encephalopathy, medication reaction, dementia, hypothyroidism, degenerative neurologic disorder, lupus.... This is not meant to be all-inclusive list Medical Decision Making - Medical Decision Making 63 female to ER for acute psychosis patient will be admitted for psychiatric evaluation and treatment - Lab Data Result diagrams: 12/15/23 12:53 12/15/23 13:19 Lab Results 12/15/23 12/15/23 12/15/23 Range/Units 12:53 13:19 13:21 WBC 11.4 H (3.8-10.6) k/uL RBC 4.45 (3.80-5.40) m/uL Hgb 14.5 (11.4-16.0) gm/dL Hct 43.1 (34.0-46.0) % MCV 97.0 (80.0-100.0) fL MCH 32.6 (25.0-35.0) pg MCHC 33.6 (31.0-37.0) g/dL RDW 12.6 (11.5-15.5) % Plt Count 206 (150-450) k/uL MPV 9.0 Neutrophils % 73 % Lymphocytes % 19 % Monocytes % 4 % Eosinophils % 2 % Basophils % 1 % Neutrophils # 8.3 H (1.3-7.7) k/uL Lymphocytes # 2.2 (1.0-4.8) k/uL Monocytes # 0.5 (0-1.0) k/uL Eosinophils # 0.2 (0-0.7) k/uL Basophils # 0.1 (0-0.2) k/uL Sodium 135 L (137-145) mmol/L Potassium 4.4 (3.5-5.1) mmol/L Chloride 109 H (98-107) mmol/L Carbon Dioxide 17 L (22-30) mmol/L Anion Gap 9 mmol/L BUN 10 (7-17) mg/dL Creatinine 0.56 (0.52-1.04) mg/dL Est GFR (CKD-EPI)AfAm >90 (>60 ml/min/1.73 sqM) Est GFR (CKD-EPI)NonAf >90 (>60 ml/min/1.73 sqM) Glucose 115 H (74-99) mg/dL Calcium 9.2 (8.4-10.2) mg/dL Total Bilirubin 1.1 (0.2-1.3) mg/dL AST 35 (14-36) U/L ALT 17 (4-34) U/L Alkaline Phosphatase 80 (38-126) U/L Ammonia (<30) umol/L Total Protein 7.8 (6.3-8.2) g/dL Albumin 4.6 (3.5-5.0) g/dL Urine Color Light Yellow Urine Appearance Clear (Clear) Urine pH 6.0 (5.0-8.0) Ur Specific [place] 1.012 (1.001-1.035) Urine Protein 1+ H (Negative) Urine Glucose (UA) Negative (Negative) Urine Ketones Negative (Negative) Urine Blood Small H (Negative) Urine Nitrite Negative (Negative) Urine Bilirubin Negative (Negative) Urine Urobilinogen <2.0 (<2.0) mg/dL Ur Leukocyte Esterase Negative (Negative) Urine RBC 4 (0-5) /hpf Urine WBC <1 (0-5) /hpf Ur Squamous Epith Cells 2 (0-4) /hpf Hyaline Casts 1 (0-2) /lpf Urine Mucus Rare H (None) /hpf Salicylates <1.0 mg/dL Urine Opiates Screen Not Detected (NotDetected) Ur Oxycodone Screen Not Detected (NotDetected) Urine Methadone Screen Not Detected (NotDetected) Acetaminophen <10.0 ug/mL Ur Barbiturates Screen Not Detected (NotDetected) U Tricyclic Antidepress Not Detected (NotDetected) Ur Phencyclidine Scrn Not Detected (NotDetected) Ur Amphetamines Screen Not Detected (NotDetected) U Methamphetamines Scrn Not Detected (NotDetected) U Benzodiazepines Scrn Not Detected (NotDetected) Urine Cocaine Screen Not Detected (NotDetected) U Marijuana (THC) Screen Detected H (NotDetected) Serum Alcohol <10 mg/dL 12/15/23 Range/Units 14:08 WBC (3.8-10.6) k/uL RBC (3.80-5.40) m/uL Hgb (11.4-16.0) gm/dL Hct (34.0-46.0) % MCV (80.0-100.0) fL MCH (25.0-35.0) pg MCHC (31.0-37.0) g/dL RDW (11.5-15.5) % Plt Count (150-450) k/uL MPV Neutrophils % % Lymphocytes % % Monocytes % % Eosinophils % % Basophils % % Neutrophils # (1.3-7.7) k/uL Lymphocytes # (1.0-4.8) k/uL Monocytes # (0-1.0) k/uL Eosinophils # (0-0.7) k/uL Basophils # (0-0.2) k/uL Sodium (137-145) mmol/L Potassium (3.5-5.1) mmol/L Chloride (98-107) mmol/L Carbon Dioxide (22-30) mmol/L Anion Gap mmol/L BUN (7-17) mg/dL Creatinine (0.52-1.04) mg/dL Est GFR (CKD-EPI)AfAm (>60 ml/min/1.73 sqM) Est GFR (CKD-EPI)NonAf (>60 ml/min/1.73 sqM) Glucose (74-99) mg/dL Calcium (8.4-10.2) mg/dL Total Bilirubin (0.2-1.3) mg/dL AST (14-36) U/L ALT (4-34) U/L Alkaline Phosphatase (38-126) U/L Ammonia <9 (<30) umol/L Total Protein (6.3-8.2) g/dL Albumin (3.5-5.0) g/dL Urine Color Urine Appearance (Clear) Urine pH (5.0-8.0) Ur Specific [place] (1.001-1.035) Urine Protein (Negative) Urine Glucose (UA) (Negative) Urine Ketones (Negative) Urine Blood (Negative) Urine Nitrite (Negative) Urine Bilirubin (Negative) Urine Urobilinogen (<2.0) mg/dL Ur Leukocyte Esterase (Negative) Urine RBC (0-5) /hpf Urine WBC (0-5) /hpf Ur Squamous Epith Cells (0-4) /hpf Hyaline Casts (0-2) /lpf Urine Mucus (None) /hpf Salicylates mg/dL Urine Opiates Screen (NotDetected) Ur Oxycodone Screen (NotDetected) Urine Methadone Screen (NotDetected) Acetaminophen ug/mL Ur Barbiturates Screen (NotDetected) U Tricyclic Antidepress (NotDetected) Ur Phencyclidine Scrn (NotDetected) Ur Amphetamines Screen (NotDetected) U Methamphetamines Scrn (NotDetected) U Benzodiazepines Scrn (NotDetected) Urine Cocaine Screen (NotDetected) U Marijuana (THC) Screen (NotDetected) Serum Alcohol mg/dL Disposition Clinical Impression: Acute psychosis Disposition: TRANSFER TO PSYCH HOSP/UNIT Condition: Fair Is patient prescribed a controlled substance at d/c from ED?: No Referrals: None,Stated [Primary Care Provider] - 1-2 days
[2023-12-15 13:46] LABS: Appearance,Urine Clear (Clear); Bilirubin,Urine Negative (Negative); Blood,Urine Small (Negative); Color,Urine Light Yellow; Glucose,Urine (UA) Negative (Negative); Hyaline Casts,Urine 1 /lpf (0-2); Ketones,Urine Negative (Negative); Leukocyte Esterase,Urine Negative (Negative); Mucus,Urine Rare /hpf; Nitrite,Urine Negative (Negative); Protein,Urine 1+ (Negative); RBC,Urine 4 /hpf (0-5); Specific Gravity,Urine 1.012 (1.001-1.035); Squamous Epithelial Cell,Urine 2 /hpf (0-4); Urobilinogen,Urine <2.0 mg/dL (<2.0); WBC,Urine <1 /hpf (0-5)
[2023-12-15 13:47] LABS: Amphetamine Screen,Urine Not Detected (NotDetected); Barbiturate Screen,Urine Not Detected (NotDetected); Benzodiazepines Screen,Urine Not Detected (NotDetected); Cocaine Screen,Urine Not Detected (NotDetected); Methadone Screen, Urine Not Detected (NotDetected); Opiate Screen,Urine Not Detected (NotDetected); Oxycodone Screen, Urine Not Detected (NotDetected); Phencyclidine Screen,Urine Not Detected (NotDetected); Tricyclic Antidepressant,Urine Not Detected (NotDetected); Urn Cannabinoid Scrn Detected (NotDetected)
[2023-12-15 13:47] LABS: ALT 17 U/L (4-34); Acetaminophen <10.0 ug/mL; African American GFR (CKD) >90 (>60 ml/min/1.73 sqM); Alcohol <10 mg/dL; Anion Gap 9 mmol/L; Blood Urea Nitrogen 10 mg/dL (7-17); Calcium 9.2 mg/dL (8.4-10.2); Carbon Dioxide 17 mmol/L (22-30); Chloride 109 mmol/L (98-107); Glucose 115 mg/dL (74-99); Non-African American GFR(CKD) >90 (>60 ml/min/1.73 sqM); Salicylate <1.0 mg/dL; Sodium 135 mmol/L (137-145); Total Bilirubin 1.1 mg/dL (0.2-1.3)
[2023-12-15 13:57] LABS: AST 35 U/L (14-36); Albumin 4.6 g/dL (3.5-5.0); Alkaline Phosphatase 80 U/L (38-126); Potassium 4.4 mmol/L (3.5-5.1); Total Protein 7.8 g/dL (6.3-8.2)
[2023-12-15] MEDS: HALOPERIDOL LACTATE 5 MG/ML 1 ML VIAL IM STA (14:30)
[2023-12-15] MEDS: diphenhydrAMINE 50 MG/ML 1 ML VIAL IVP STA (16:07)
[2023-12-15] MEDS ORDERED: MAGNESIUM HYDROXIDE 2,400 MG/30 ML CUP PO PRN (17:50)
[2023-12-15] MEDS ORDERED: LORazepam 2 MG/ML INJ IM PRN (17:54)
[2023-12-15] MEDS ORDERED: haloperidoL 5 MG TAB PO PRN (17:54)
[2023-12-15] MEDS ORDERED: LORazepam 1 MG TAB PO PRN (17:54)
[2023-12-15] MEDS ORDERED: HALOPERIDOL LACTATE 5 MG/ML 1 ML VIAL IM PRN (17:54)
[2023-12-15] MEDS: MIDAZOLAM 1 MG/ML 5 ML VIAL IV STA (18:01)
[2023-12-15] MEDS: MECLIZINE 25 MG TAB PO SCH (21:34)
[2023-12-15] MEDS: carvediloL 12.5 MG TAB PO SCH (21:34)
[2023-12-15] MEDS: traZODone HCL 100 MG TAB PO SCH (21:34)
--- NOTE | 2023-12-16 01:02 | P.CONS ---
History of Present Illness - Reason for Consult Consult date: 12/16/23 - History of Present Illness The patient is a 63-year-old female with a PMH of hypertension, hyperlipidemia, tobacco use, asthma who had been brought to the emergency room via EMS for strange behavior. The patient was admitted to the mental health unit where she was seen and evaluated. The patient reports that her family members were concerned about her as she was speaking in tongues. She reports that she needs an manager of application development who speaks the original language of Jc Dodson so that she can communicate her message to her family members and others around her. She denied any physical complaints at the time of interview however. Denied experiencing chest discomfort, shortness of breath, fever, chills, cough, nausea, vomiting, abdominal pain, diarrhea. She reports compliance with the home medications. Review of systems: Pertinent positives and negatives as discussed in HPI, a complete review of systems was performed and all other systems are negative. Physical examination: General: non toxic, no distress, appears at stated age, normal weight Derm: no unusual rashes/lesions, no unusual ecchymoses, warm, dry Head: atraumatic, normocephalic, symmetric Eyes: EOMI, no lid lag, anicteric sclera ENT: Nose and ears atraumatic, no thrush, no pharyngeal erythema Neck: trachea midline, supple Mouth: no lip lesion, mucus membranes moist Cardiovascular: S1S2 reg, no murmur, no edema Lungs: CTA bilateral, no rhonchi, no rales , no accessory muscle use Abdominal: soft, nontender to palpation, no guarding Ext: no gross muscle atrophy, no contractures, Neuro: No gross focal neuro deficits noted Psych: Alert, oriented, appropriate affect Assessment: Leukocytosis, likely secondary to acute stressor with no signs of active infection at this time Chronic conditions: Hypertension, hyperlipidemia, asthma Psychosis Imaging: None performed Data Review: Reviewed with urine toxicology positive for marijuana with UA showing rare mucus and small blood with 1+ protein, with sodium 135, chloride 109, CO2 17, and glucose 115 with WBC count 11.4. Plan: Continue to monitor CBC Advised on importance of cessation from substance use Resume home medications Defer management of psychosis to primary psychiatry service Thank you for allowing us to participate in the care of this patient. We will follow peripherally. Do not hesitate to contact us with questions. Someone can be reached from the [facility] hospitalist group at all hours of the day at [phone]. Past Medical History Past Medical History: Hearing Disorder / Deafness, Hypertension, Osteoarthritis (OA) Additional Past Medical History / Comment(s): Migraines, cervical and back pain, occasional bilateral tinnitis, PAIMIUT bilaterally-L ear worse, generalized arthritis, sinus allergies, colitis many years ago. History of Any Multi-Drug Resistant Organisms: None Reported Past Surgical History: Hysterectomy, Orthopedic Surgery, Tonsillectomy Additional Past Surgical History / Comment(s): R ACL repair, bilateral rotator cuff repairs, bilateral knee meniscus repairs, colonoscopy, cervical and lower back pain clinic procedures. Past Anesthesia/Blood Transfusion Reactions: No Reported Reaction Past Psychological History: Depression Additional Psychological History / Comment(s): Pt resides alone. She is independent. Pt states she had issues with depression in the past, was placed on wellbutrin to assist in stopping smoking but also noticed it had helped her depression. Pt states she has no suicidal thoughts or wishes she were . Smoking Status: Current every day smoker Past Alcohol Use History: Occasional Additional Past Alcohol Use History / Comment(s): PT started smoking in 1972 and states a pack lasts between 2-4 days. Past Drug Use History: Marijuana Additional Drug Use History / Comment(s): Pt states she last used marijuana a month ago. - Past Family History Father History Unknown: Yes Additional Family Medical History / Comment(s): Father when pt was in 5th or 6th grade. Sister(s) Family Medical History: Cancer, Diabetes Mellitus Additional Family Medical History / Comment(s): Sister from lymphoma. Mother Family Medical History: Hyperlipidemia, Hypertension Medications and Allergies Home Medications Medication Instructions Recorded Confirmed Type Aspirin EC [Ecotrin Low Dose] 81 mg PO DAILY 05/18/19 12/15/23 History hydroCHLOROthiazide [Hydrodiuril] 25 mg PO DAILY #90 tab 05/19/19 12/15/23 Rx Albuterol Inhaler [Ventolin Hfa 1 - 2 puff INHALATION RT-QID PRN 12/15/23 12/15/23 History Inhaler] DULoxetine HCL [Cymbalta] 60 mg PO DAILY 12/15/23 12/15/23 History Isosorbide Mononitrate ER [Imdur] 30 mg PO DAILY 12/15/23 12/15/23 History Meclizine [Antivert] 25 mg PO TID 12/15/23 12/15/23 History Meloxicam [Mobic] 15 mg PO DAILY 12/15/23 12/15/23 History Ondansetron [Zofran] 4 mg PO BID PRN 12/15/23 12/15/23 History Rosuvastatin [Crestor] 10 mg PO DAILY 12/15/23 12/15/23 History amLODIPine [Norvasc] 10 mg PO DAILY 12/15/23 12/15/23 History carvediloL [Coreg] 12.5 mg PO BID 12/15/23 12/15/23 History traZODone HCL 200 mg PO HS 12/15/23 12/15/23 History traZODone HCL [Desyrel] 50 mg PO BID@0900,1400 PRN 12/15/23 12/15/23 History Allergies Allergy/AdvReac Type Severity Reaction Status Date / Time Sulfa (Sulfonamide Allergy Rash/Hives/ Verified 12/15/23 13:48 Antibiotics) Nausea Physical Exam Vitals: Vital Signs Temp Pulse Pulse Resp BP BP Pulse Ox 12/15/23 21:38 97 127/76 12/15/23 19:37 98.0 F 76 18 146/78 98 12/15/23 11:58 98.3 F 100 18 134/80 100 Intake and Output 12/15/23 12/15/23 12/16/23 14:59 22:59 06:59 Other: Weight 58.967 kg 56.5 kg Results CBC & Chem 7: 12/15/23 12:53 12/15/23 13:19 Labs: Abnormal Lab Results - Last 24 Hours (Table) 12/15/23 12/15/23 12/15/23 Range/Units 12:53 13:19 13:21 WBC 11.4 H (3.8-10.6) k/uL Neutrophils # 8.3 H (1.3-7.7) k/uL Sodium 135 L (137-145) mmol/L Chloride 109 H (98-107) mmol/L Carbon Dioxide 17 L (22-30) mmol/L Glucose 115 H (74-99) mg/dL Urine Protein 1+ H (Negative) Urine Blood Small H (Negative) Urine Mucus Rare H (None) /hpf U Marijuana (THC) Screen Detected H (NotDetected)
[2023-12-16] MEDS: ASPIRIN 81 MG PO SCH (08:51)
[2023-12-16] MEDS: ATORVASTATIN 20 MG TAB PO SCH (08:51)
[2023-12-16] MEDS: amLODIPine 10 MG TAB PO SCH (08:51)
[2023-12-16] MEDS: DULoxetine HCL 60 MG CAPSULE.DR PO SCH (08:55)
[2023-12-16] MEDS: ISOSORBIDE MONONITRATE ER 30 MG TAB.ER.24H PO SCH (08:55)
[2023-12-16] MEDS: hydroCHLOROthiazide 25 MG TAB PO SCH (08:55)
[2023-12-16] MEDS: MELOXICAM 7.5 MG TAB PO SCH (08:56)
[2023-12-16] MEDS: NICOTINE 14MG/24HR PATCH TRANSDERM SCH (08:56)
[2023-12-16 10:38] LABS: HCT 41.3 % (34.0-46.0); HGB 13.5 gm/dL (11.4-16.0); MCH 32.1 pg (25.0-35.0); MCHC 32.7 g/dL (31.0-37.0); MCV 98.1 fL (80.0-100.0); Mean Platelet Volume 8.5; Platelet Count 202 k/uL (150-450); RBC 4.21 m/uL (3.80-5.40); RDW 12.5 % (11.5-15.5); WBC 10.7 k/uL (3.8-10.6)
[2023-12-16] MEDS ORDERED: LORazepam 1 MG TAB PO PRN (12:16)
[2023-12-16] MEDS ORDERED: LORazepam 2 MG/ML INJ IM PRN (12:16)
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
[2023-12-16 15:01] LABS: Chol/HDL Ratio 2.62 Ratio; LDL Cholesterol,Calculated 57.9 mg/dL (0.0-131.0); VLDL Calculation 14.44 mg/dL (5.00-40.00)
[2023-12-16] MEDS: traZODone HCL 100 MG TAB PO SCH (21:16)
[2023-12-16] MEDS: PALIPERIDONE 3 MG TAB.ER.24 PO SCH (21:16)
--- NOTE | 2023-12-17 11:17 | P.PN ---
Progress Note - Text Progress Note Date: 12/17/23 Interval History: Patient was seen wandering the hallways and was directable and agreeable to sp kacyk with ghost writer in her room, at the bedside. Christmas Tree Contractor was accompanies by his press assistant and feeder, and Dr Dumas, due to patient speaking inappropriately about ghost writer. Patient was angry with ghost writer due to what is written on her clinical certificate filled out by ghost writer. She started speaking in tongues. She became increasingly angry, and said she was going to be compliant, however, last night, she did not take her medication. She stated she slept well, and her appetite is good. She then told the ghost writer to leave, and she would pray for his soul. Remains religiously preoccupied. At this time patient denies any suicidal or homicidal ideations, intent or plan. Patient denies any auditory, visual hallucinations and denies any paranoia or delusions. Patient denies any side effects from the medications and has been compliant with meds. MENTAL STATUS EXAM: General Appearance: Patient appears to be stated age is alert, needs redirected several times. Patient appears to have fair hygiene and grooming. Dressed casually. Long, clean hair. Behavior: Patient is seated without any agitated behavior. bizarre at times Speech: Patient's speech is hyperverbal and nonpressured. Mood/Affect: Patient reports their mood is angry, affect is congruent and constricted. Suicidality/Homicidality: Patient denies having any homicidal ideation intent or plan. Denies any suicidal ideations intent or plan Perceptions: Patient denies any visual hallucinations and denies any auditory hallucinations Though content/process: [There is evidence of any delusional thought content and thought process disorganized, religiously preoccupied, bizarre (speaking in tongues) Memory and concentration: AOX3, grossly intact for the purposes of this session. Judgment and insight: Poor IMPRESSIONS: psychosis, unspecified Cannabis use disorder nicotine dependance PLAN: -Patient is admitted under involuntary] status to [facility] for stabilization of psychiatric symptoms and safety. Patient has not signed adult voluntary form or medication consent and is placed in patient's chart. A second certification was completed and along with petition will be filed for court. -Medications : invega 3mg qhs for psychosis, trazodone 100mg qhs for sleep, Cymbalta 60mg daily for mood/anxiety. refusing medications. -Ativan and Haldol PRN for agitation/aggression -NRT -nicotine patch -SW on board for discharge planning. Encourage patient to participate in groups to work on coping skills. Will await deferral and court date.
[2023-12-17] MEDS: MAG HYDROX/AL HYDROX/SIMETH 355 ML BOTTLE PO PRN (12:31)
[2023-12-17] MEDS: ACETAMINOPHEN TAB 325 MG TAB PO PRN (14:17)
[2023-12-17] MEDS: ONDANSETRON 4 MG TAB PO PRN (18:40)
[2023-12-18] MEDS ORDERED: ACETAMINOPHEN TAB 325 MG TAB ONE (02:07)
[2023-12-18] MEDS: BENZOCAINE/MENTHOL LOZENG 1 EACH LOZENGE MUCOUS MEM PRN (07:12)
--- NOTE | 2023-12-18 11:27 | P.PN ---
Progress Note - Text Progress Note Date: 12/18/23 Interval History: Patient was seen wandering the hallways and was directable and agreeable to sp gabino with telegraphic typewriter mechanic in her room, at the bedside. Commercial Art Instructor was accompanied by his assistant construction superintendent, and Dr. Dumas, due to patient speaking inappropriately about telegraphic typewriter mechanic. Initially was cooperative, stating she is doing great today, and is ready to go home. She stated she slept well, and her appetite is good. She did ask if she was going home today, telegraphic typewriter mechanic explained that she would need to stay, so her medication dosage could be at a therapeutic level, patient then became agitated, and was raising her voice at the telegraphic typewriter mechanic. She stated that she does not agree with the statements the telegraphic typewriter mechanic wrote on the clinical cert. At this time patient denies any suicidal or homicidal ideations, intent or plan. Patient denies any auditory, visual hallucinations and denies any paranoia or delusions. Patient denies any side effects from the medications and has been compliant with meds. MENTAL STATUS EXAM: General Appearance: Patient appears to be stated age is alert, needs redirected several times. Patient appears to have fair hygiene and grooming. Dressed casually. Long, clean hair. Behavior: Patient is standing without any agitated behavior. bizarre at times, become agitated during interview. demanding discharge Speech: Patient's speech is hyperverbal and nonpressured. Mood/Affect: Patient reports their mood is fine affect is congruent and constricted. Suicidality/Homicidality: Patient denies having any homicidal ideation intent or plan. Denies any suicidal ideations intent or plan Perceptions: Patient denies any visual hallucinations and denies any auditory hallucinations Though content/process: [There is evidence of any delusional thought content and thought process disorganized, religiously preoccupied, improving mildly Memory and concentration: AOX3, grossly intact for the purposes of this session. Judgment and insight: Poor IMPRESSIONS: psychosis, unspecified Cannabis use disorder nicotine dependance PLAN: -Patient is admitted under involuntary] status to [facility] for stabilization of psyc hiatric symptoms and safety. -Medications : increase nvega 6mg qhs for psychosis, trazodone 100mg qhs for sleep, Cymbalta 60mg daily for mood/anxiety. -Ativan and Haldol PRN for agitation/aggression -NRT -nicotine patch -SW on board for discharge planning. Encourage patient to participate in groups to work on coping skills. Patient deferred with her regional coordinator.
[2023-12-18] MEDS: IBUPROFEN 600 MG TAB PO PRN (17:42)
[2023-12-18] MEDS: PALIPERIDONE 6 MG TAB.ER.24 PO SCH (20:36)
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
[2023-12-20] MEDS: ARTIFICIAL TEARS-HYPROMELLOSE DROPS 15 ML BTL BOTH EYES PRN (04:25)
[2023-12-20] MEDS: ALBUTEROL HFA INHALER INHALATION PRN (09:41)
--- NOTE | 2023-12-20 23:14 | P.PN ---
Progress Note - Text Interval history: Patient was seen [wandering the hallways] and was directable and agreeable to speak with justowriter operator. At this time patient denies any suicidal or homicidal ideations intent or plan. Denies any Auditory or visual hallucinations. Patient denies any side effects from the medications and has been compliant with meds. Mental status exam: General Appearance: [Patient appears to be stated age is alert, directable, and cooperative.] Behavior:: agitated Speech: Patient's speech is fluent Mood/Affect: Mood is improving mildly, affect is full range Suicidality/Homicidality: Patient denies having any suicidal or homicidal ideation intent or plan. Perceptions: Patient denies any auditory or visual hallucinations. Though content/process: patient appears to have multiple delusions, preoccupied with Tongues Memory and concentration: AOX3, grossly intact for the purposes of this session Judgment and insight: poor Assessment/Plan: Continue with current diagnosis. Patient continues to meet criteria for inpatient psychiatric admission for symptom stabilization and safety.[Patient will be maintained on current psychotropic medication regimen.] Monitor for medication compliance and for any psychotropic medication side effects. Will continue to monitor ongoing response to treatment. Encouraged participation in milieu.
[2023-12-21] MEDS: MULTIVITAMINS, THERA 1 EACH TAB PO SCH (09:17)
--- NOTE | 2023-12-21 11:32 | P.PN ---
Progress Note - Text Progress Note Date: 12/21/23 Interval History: Patient was seen wandering the hallways and was directable and agreeable to sp gabino with comic writer in the office. The patient states that she is feeling much better today. She states that she thinks that she would not have lived much longer, without the intervention of the stay at the mental health unit. She is still angry at the statements made on the clinical cert. Treasury Director explained the reasoning behind, patient verbalized understanding, however, interrupts and is argumentative during the conversation. At this time patient denies any suicidal or homicidal ideations, intent or plan. Patient denies any auditory, visual hallucinations and denies any paranoia or delusions. Patient denies any side effects from the medications and has been compliant with meds. MENTAL STATUS EXAM: General Appearance: Patient appears to be stated age is alert, needs redirected several times. Patient appears to have fair hygiene and grooming. Dressed casually. Long, clean hair. Behavior: Patient is seated without any agitated behavior. Becomes mildly argumentative during interview. Speech: Patient's speech is hyperverbal and nonpressured. Mood/Affect: Patient reports their mood is better, affect is congruent and constricted. Suicidality/Homicidality: Patient denies having any homicidal ideation intent or plan. Denies any suicidal ideations intent or plan Perceptions: Patient denies any visual hallucinations and denies any auditory hallucinations Though content/process: There is no evidence of any delusional thought content and thought process improving mildly. focused on arguing with comic writer about her admission criteria. Memory and concentration: AOX3, grossly intact for the purposes of this session. Judgment and insight: Poor, mildly improving, impulsive. IMPRESSIONS: psychosis, unspecified Cannabis use disorder nicotine dependance PLAN: -Patient is admitted under involuntary] status to [facility]HU for stabilization of psychiatric symptoms and safety. -Medications : increase invega 9mg qhs for psychosis, decrease trazodone 50mg qhs PRN for sleep, Cymbalta 60mg daily for mood/anxiety. -Ativan and Haldol PRN for agitation/aggression -NRT -nicotine patch -SW on board for discharge planning. Encourage patient to participate in groups to work on coping skills. Patient deferred with her attorney lawyer. Possible discharge Thursday or if patient continues to improve.
[2023-12-21] MEDS: PALIPERIDONE 3 MG TAB.ER.24 PO SCH (20:14)
--- NOTE | 2023-12-22 11:25 | P.PN ---
Progress Note - Text Progress Note Date: 12/22/23 Interval History: Patient was seen wandering the hallways and was directable and agreeable to sp gabino with machine sign writer in the office. She states that she is doing a bit better today overall, states that she is still coughing a bit and claims that she has a history of "having an autoimmune disease". She did not specify which one. She was asking for blood work to see if she actually does have an infection and possibly antibiotics. She did claim overall she is doing better with regards to her mood she appears to be less labile and agitated with machine sign writer, more cooperative. Also more future oriented today. We spoke about the option for long-acting injection and she was agreeable to try it and states that "I am not that good with taking pills". She claims that she is sleeping fairly over nighttime try to go to groups. At this time patient denies any suicidal or homicidal ideations, intent or plan. Patient denies any auditory, visual hallucinations and denies any paranoia or delusions. Patient denies any side effects from the medications and has been compliant with meds. MENTAL STATUS EXAM: General Appearance: Patient appears to be stated age is alert, needs redirected several times. Patient appears to have fair hygiene and grooming. Dressed casually. Long, clean hair. Behavior: Patient is seated without any agitated behavior. More cooperative today. Speech: Patient's speech is hyperverbal and nonpressured. Mood/Affect: Patient reports their mood is better, affect is congruent and improving Suicidality/Homicidality: Patient denies having any homicidal ideation intent or plan. Denies any suicidal ideations intent or plan Perceptions: Patient denies any visual hallucinations and denies any auditory hallucinations Though content/process: There is no evidence of any delusional thought content and thought process improving mildly. More future oriented today. Memory and concentration: AOX3, grossly intact for the purposes of this session. Judgment and insight: mildly improving IMPRESSIONS: psychosis, unspecified Cannabis use disorder nicotine dependance PLAN: -Patient is admitted under involuntary] status to [facility]HU for stabilization of psychiatric symptoms and safety. -Medications : Continue invega 9mg qhs for psychosis, trazodone 50mg qhs PRN for sleep, Cymbalta 60mg daily for mood/anxiety. Patient is agreeable to receive loading dose of long-acting injection will likely give tomorrow. -Check CBC with differential and comprehensive metabolic panel tomorrow morning -Ativan and Haldol PRN for agitation/aggression -NRT -nicotine patch -SW on board for discharge planning. Encourage patient to participate in groups to work on coping skills. Patient deferred with her immigration attorney. Possible discharge if patient continues to improve. Patient is agreeable to receive long- acting injection likely tomorrow.
[2023-12-22] MEDS: FLUTICASONE NASAL 50MCG/SPRAY 16GM BTL EA NOSTRIL SCH (12:47)
[2023-12-22] MEDS: traZODone HCL 50 MG TAB PO PRN (20:28)
[2023-12-23 07:24] LABS: Basophils # (A) 0.1 k/uL (0-0.2); Basophils % (A) 1 %; Eosinophils # (A) 0.9 k/uL (0-0.7); Eosinophils % (A) 10 %; HCT 44.1 % (34.0-46.0); HGB 15.2 gm/dL (11.4-16.0); Lymphocytes % (A) 23 %; MCH 32.7 pg (25.0-35.0); MCHC 34.6 g/dL (31.0-37.0); MCV 94.5 fL (80.0-100.0); Mean Platelet Volume 8.5; Monocytes # (A) 0.7 k/uL (0-1.0); Monocytes % (A) 8 %; Neutrophils # (A) 5.1 k/uL (1.3-7.7); Neutrophils % (A) 57 %; Platelet Count 221 k/uL (150-450); RBC 4.66 m/uL (3.80-5.40); RDW 12.6 % (11.5-15.5); WBC 8.9 k/uL (3.8-10.6)
[2023-12-23 07:44] LABS: ALT 28 U/L (4-34); AST 33 U/L (14-36); African American GFR (CKD) >90 (>60 ml/min/1.73 sqM); Albumin 4.8 g/dL (3.5-5.0); Alkaline Phosphatase 92 U/L (38-126); Anion Gap 12 mmol/L; Blood Urea Nitrogen 13 mg/dL (7-17); Calcium 10.5 mg/dL (8.4-10.2); Carbon Dioxide 26 mmol/L (22-30); Chloride 95 mmol/L (98-107); Glucose 108 mg/dL (74-99); Non-African American GFR(CKD) >90 (>60 ml/min/1.73 sqM); Potassium 4.1 mmol/L (3.5-5.1); Sodium 133 mmol/L (137-145); Total Bilirubin 0.5 mg/dL (0.2-1.3); Total Protein 8.6 g/dL (6.3-8.2)
[2023-12-23] MEDS ORDERED: SODIUM CHLORIDE 0.65% NASAL SPRAY 44 ML BTL NASAL PRN (11:51)
--- NOTE | 2023-12-23 11:56 | P.PN ---
Progress Note - Text Progress Note Date: 12/23/23 Interval History: Patient was seen wandering the hallways and was directable and agreeable to sp gabino with service writer advisor in the office. She states that she is not feeling great today, she states she has been coughing up mucus today, however, it is improving. Jewelry Casting Model Maker spoke with patient about ordering tesslon pearls, patient agreeable. She states she is feeling mentally well today, she is more future oriented today. She claims that she is sleeping good at night, she is also going to groups. At this time patient denies any suicidal or homicidal ideations, intent or plan. Patient denies any auditory, visual hallucinations and denies any paranoia or delusions. Patient denies any side effects from the medications and has been compliant with meds. MENTAL STATUS EXAM: General Appearance: Patient appears to be stated age is alert, needs redirected several times. Patient appears to have fair hygiene and grooming. Dressed casually. Long, clean hair. Behavior: Patient is seated without any agitated behavior. More cooperative today. Speech: Patient's speech is fluent and nonpressured. Mood/Affect: Patient reports their mood is better, affect is congruent and improving Suicidality/Homicidality: Patient denies having any homicidal ideation intent or plan. Denies any suicidal ideations intent or plan Perceptions: Patient denies any visual hallucinations and denies any auditory hallucinations Though content/process: There is no evidence of any delusional thought content and thought process improving mildly. More future oriented. Memory and concentration: AOX3, grossly intact for the purposes of this session. Judgment and insight: mildly improving IMPRESSIONS: psychosis, unspecified Cannabis use disorder nicotine dependance PLAN: -Patient is admitted under involuntary] status to [facility] for stabilization of psychiatric symptoms and safety. -Medications : invega 9mg qhs for psychosis, trazodone 50mg qhs PRN for sleep, Cymbalta 60mg daily for mood/anxiety. Add tesslon pearls PRN for cough, add saline nasal spray prn, Add Invega Sustenna 234mg IM today, 12/22, next dose of 156mg IM on 12/29, Then 156mg IM monthly. on 01/26 -Ativan and Haldol PRN for agitation/aggression -NRT -nicotine patch -SW on board for discharge planning. Encourage patient to participate in groups to work on coping skills. Patient deferred with her attorney recruiter. Likely discharge tomorrow, if patient continues to improve.
[2023-12-23] MEDS: BENZONATATE 100 MG CAP PO PRN (12:52)
[2023-12-23] MEDS: PALIPERIDONE IM 234 MG/1.5 ML SYG IM ONE (18:27)
[2023-12-24 07:03] VITALS: TEMP 97.7
[2023-12-24 08:09] VITALS: BP 117/82; PULSE 111; RESP 20
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
== END 2023-12-24 11:37 | disposition home or self-care (01) | DRG 885 ==
LOC: EC 11:57 → 3MHU 17:48
PROVIDERS: ADMIT Psychiatry & Neurology Psychiatry; ATTEND Psychiatry & Neurology Psychiatry
DX: F29 Unspecified psychosis not due to a substance or known physiological condition (principal); R45.851 Suicidal ideations; Z91.148 Patient's other noncompliance with medication regimen for other reason; D72.829 Elevated white blood cell count, unspecified; E78.5 Hyperlipidemia, unspecified; F17.210 Nicotine dependence, cigarettes, uncomplicated; H91.93 Unspecified hearing loss, bilateral; I10 Essential (primary) hypertension; J45.909 Unspecified asthma, uncomplicated; F12.10 Cannabis abuse, uncomplicated; F41.9 Anxiety disorder, unspecified; M13.0 Polyarthritis, unspecified; Z79.1 Long term (current) use of non-steroidal anti-inflammatories (NSAID); Z79.82 Long term (current) use of aspirin; Z79.899 Other long term (current) drug therapy; Z88.2 Allergy status to sulfonamides; Z90.710 Acquired absence of both cervix and uterus
CPT/HCPCS: 36415; 80053; 80061; 80143; 80179; 80306; 80320; 81001; 82075; 82140; 83036; 84443; 85025; 85027; 87635; 87636; 96361; 96372; 96374; 96375; 99285